=== PATIENT | male | born 1995 | race Caucasian/White ===

== ENCOUNTER 2019-02-20 22:30 | Emergency (ER) | payer SELFPAY ==
[~2019-02-20] VITALS: Ht 177.8 cm; Wt 91.0 kg
--- NOTE | 2019-02-20 23:30 | NUR ---
pt resting in bed IN 4 POINT RESTRAINTS. PT AROUSABLE TO VOICE. PT CONFUSED, UNABLE TO ANSWER ANY QUESTIONS. PT BALLING UP HIS FISTS WHEN TALKING TO STAFF. WILL CONTINUE TO MONITOR.
--- NOTE | 2019-02-21 00:10 | NUR ---
PT RIGHT HAND SWOLLEN AND RED/BRUISED. PT MOVING HAND WITHOUT PAIN NOR DIFFICULTY. PT DOES NOT C/O PAIN ON PALPATION. RESTAINT REMOVED FROM THIS HAND. RESTRAINT WAS PLACED CORRECTLY. WILL CONTINUE TO MONITOR.
--- NOTE | 2019-02-21 00:58 | NUR ---
FLOAT RN: PT YELLING AND TRYING TO GET OUT OF BED. PT IN RESTRAINTS. VS STABLE. PT ALTERED AT THIS TIME. WILL CONTINUE TO MONITOR WHILE PRIMARY RN IS ON BREAK
--- NOTE | 2019-02-21 01:15 | NUR ---
REPORT GIVEN TO VERO ELIAS
--- NOTE | 2019-02-21 01:54 | NUR ---
PT YELLING OUT INTO THE HALLWAY. PT THREATENING MALE STAFF, STATING, "WHAT'S UP? YOU NEXT ABDON!!" PT REMAINS IN 2 POINT RESTRAINTS. PT NOW AWAKE, REMAINS CONFUSED. IS SITTING UP IN BED YELLING
--- NOTE | 2019-02-21 02:16 | NUR ---
PT REMAINS CONFUSED. YELLING AT SITTER IN [facility].
--- NOTE | 2019-02-21 03:11 | NUR ---
PT CALMING DOWN A BIT. PT EASILY AROUSABLE, A&Ox1. PT REMAINS CONFUSED.
--- NOTE | 2019-02-21 03:50 | NUR ---
PT IS COMPLETELY OUT OF RESTRAINTS. PT RIGHT HAND LOOKS BRUISED, AND SWOLLEN. ERP AWARE. WILL CONTINUE TO MONITOR. SWELLING IN RIGHT HAND DOES NOT LOOK LIKE IT WAS CAUSED BY RESTRAINTS AND DID NOT IMPROVE AFTER RESTRAINT REMOVAL.
--- NOTE | 2019-02-21 04:25 | NUR ---
PT RESTING IN BED. PT DESATING TO 76% ON RA. PT O2 PLACED BACK ON. PT REMAINS CALM. PT STATED HE WANTED TO FIGHT, THEN LAUGHED. PT ASKED NOT TO FIGHT IN THE HOSPITAL. PT STATED OKAY. WILL CONTINUE TO MONITOR. PT MOSTLY DOZING, AROUSABLE TO VOICE.
--- NOTE | 2019-02-21 05:03 | NUR ---
PT RESTING SOMULENTLY IN BED AT THIS TIME. PT IN HIGH FOWLERS POSITION, STILL HAS O2 ON. VSS. WILL CONTINUE TO MONITOR. PT AROUSABLE TO TACTILE STIMULI
[2019-02-21 06:15] VITALS: BP 103/50
--- NOTE | 2019-02-21 06:15 | NUR ---
PT ABLE TO AMBULATE STEADILY IN HALLS FOR 100+ FEET. PT A&OX4. PT STATED HE IS FROM [facility], BUT IS HERE LIVING ON HIS OWN IN THE RESIDENTIAL/STREETS. PT ABLE TO DRESS HIMSELF. PT GIVEN TAXI VOUCHER TO RESIDENTIAL. ALL BELONGINGS RETURNED TO PT.
== END 2019-02-21 06:16 | disposition home or self-care (01) ==
LOC: ED 02-21 06:08
DX: F10.121 Alcohol abuse with intoxication delirium (principal); G92 Toxic encephalopathy
CPT/HCPCS: 36415; 80307; 99283